=== PATIENT | female | born 1990 | race Hispanic/Latino ===

== ENCOUNTER 2023-02-15 19:45 | Inpatient (IN) | payer OTHER, SELFPAY ==
[~2023-02-15 19:45] MED LIST: Bupivacaine 0.25% HCL 30 ML VIAL ONE
[2023-02-15 20:15] VITALS: BMI 24.3
[2023-02-15] MEDS ORDERED: hydrALAZINE 20 MG/ML VIAL SLOW IVP PRN ×2 (20:26→21:15)
[2023-02-15 20:56] LABS: Fetal Membranes Rupture RUPTURE DETECTED (No Rupture)
[2023-02-15] MEDS ORDERED: Promethazine HCl 25 MG/ML VIAL IM PRN (21:15)
[2023-02-15] MEDS ORDERED: NS w/ Oxytocin 30 units 500 ML IV SCH ×3 (21:15→22:00)
[2023-02-15] MEDS ORDERED: Ondansetron PF 4 MG/2 ML Vial IVP PRN (21:15)
[2023-02-15] MEDS ORDERED: Ibuprofen 800 MG TAB PO PRN (21:48)
[2023-02-15] MEDS ORDERED: Lidocaine 1% (PF) 30 ML VIAL SC PRN (21:48)
[2023-02-15] MEDS ORDERED: Penicillin G Potassium 5 MILL.UNITS in Sodium Chloride 0.9% 100 ML IVPB SCH (22:00)
[2023-02-15 22:43] LABS: Hematocrit 35.8 % (34.9-44.5); Hemoglobin 11.9 g/dL (12.0-15.5); Mean Corpuscular HGB CONC 33.2 g/dL (32.0-36.0); Mean Corpuscular Hemoglobin 26.5 pg (27.0-33.0); Mean Corpuscular Volume 79.7 fl (81.6-98.3); Mean Platelet Volume 9.8 fl (7.4-10.4); Platelet Count 352 10x3/uL (150-450); RBC Distribution Width 14.8 % (11.5-14.5); Red Blood Cell (RBC) Count 4.49 10x6/uL (3.90-5.03); White Blood Cell (WBC) Count 9.7 10x3/uL (3.5-10.5)
[2023-02-15 23:13] LABS: Syphilis Antibody Nonreactive (Nonreactive); Syphilis Antibody Index 0.03 S/CO (<1.00 Non-Reactive)
[2023-02-15 23:14] LABS: HBSAg Index 0.16 S/CO (0-0.99); Hep B Surf Ag - L&D Non-Reactive S/CO (NonReactive)
[2023-02-16] MEDS ORDERED: fentaNYL/Ropivacaine Epidural 100 ML ONE (00:29)
[2023-02-16] MEDS ORDERED: ePHEDrine Sulfate 50 MG/10 ML VIAL SLOW IVP PRN (01:29)
[2023-02-16] MEDS ORDERED: Moisturizing Cream (Eucerin) 113 GM JAR TOP PRN (01:29)
[2023-02-16] MEDS ORDERED: Naloxone HCl 0.4 mg/ml Vial IVP PRN ×2 (01:29)
[2023-02-16] MEDS ORDERED: Ondansetron PF 4 MG/2 ML Vial IVP PRN ×2 (01:29→10:48)
[2023-02-16] MEDS ORDERED: Promethazine HCl 25 MG/ML VIAL IM PRN ×2 (01:29→10:48)
[2023-02-16] MEDS ORDERED: Lactated Ringer's 500 ML IV PRN (01:29)
[2023-02-16] MEDS ORDERED: Acetaminophen 325 MG TAB PO PRN (01:29)
[2023-02-16] MEDS ORDERED: diphenhydrAMINE 50 MG/ML VIAL IVP PRN (01:29)
[2023-02-16] MEDS ORDERED: fentaNYL 2 mcg/Ropivacaine 0.2% Epidural 100 ML CADD EPIDURAL SCH (01:30)
[2023-02-16] MEDS ORDERED: Communication Order-Pharmacy FS SCH (01:30)
[2023-02-16] MEDS: Penicillin G 2.5 MILL.units 2.5 MILL.UNITS in Premix Bag 1 BAG IVPB SCH (03:09)
[2023-02-16] MEDS ORDERED: Misoprostol 200 MCG TAB VAG PRN ×2 (07:01→10:48)
[2023-02-16] MEDS ORDERED: Bisacodyl 10 MG SUPP PR PRN ×2 (07:01→10:48)
[2023-02-16] MEDS ORDERED: Boostrix 0.5 ML (Tdap) VIAL (>/=7 yrs of age) IM ONE (07:01)
[2023-02-16] MEDS ORDERED: Milk Of Magnesia 30 ML UDCUP PO PRN (07:01)
[2023-02-16] MEDS ORDERED: Ferrous Sulfate 325 MG TAB PO SCH ×2 (08:00→11:15)
[2023-02-16] MEDS ORDERED: Docusate 100 MG CAP PO SCH ×3 (09:00→21:00)
[2023-02-16] MEDS ORDERED: diphenhydrAMINE 25 MG CAP PO PRN (10:48)
[2023-02-16] MEDS ORDERED: Preparation H Ointment 28 GM TUBE PR PRN (10:48)
[2023-02-16] MEDS ORDERED: HYDROcodone/Acetaminophen 5/325 mg Tablet PO PRN (10:48)
[2023-02-16] MEDS ORDERED: Zolpidem Tartrate 5 MG TAB PO PRN (10:48)
[2023-02-16] MEDS ORDERED: hydrALAZINE 20 MG/ML VIAL SLOW IVP PRN (10:48)
[2023-02-16] MEDS ORDERED: Measles/Mumps/Rubella 10 MCG/0.5 ML VIAL SC ONE (10:48)
[2023-02-16] MEDS ORDERED: Methylergonovine 0.2 MG/ML VIAL IM PRN (10:48)
[2023-02-16] MEDS ORDERED: Varicella virus, LIVE 0.5 ML VIAL SC ONE (10:48)
[2023-02-16] MEDS ORDERED: Lanolin Ointment 7 GM TUBE TOP PRN (10:48)
[2023-02-16] MEDS ORDERED: NS w/ Oxytocin 30 units 500 ML IV SCH (10:48)
[2023-02-16] MEDS ORDERED: Prenatal Vitamin 1 TAB PO SCH (11:00)
[2023-02-16] MEDS: HYDROcodone/Acetaminophen 5/325 mg Tablet PO PRN ×3 (11:10→23:24)
[2023-02-16] MEDS: Benzocaine-Menthol 82.5 ML CAN TOP PRN (11:10)
[2023-02-16] MEDS: Ibuprofen 800 MG TAB PO SCH ×2 (12:00→21:50)
[2023-02-16] MEDS: Lactated Ringer's 1,000 ML IV SCH ×2 (17:43→19:32)
[2023-02-16] MEDS: Ferrous Sulfate 325 MG TAB PO SCH (17:44)
[2023-02-16] MEDS: Docusate 100 MG CAP PO SCH (21:50)
[2023-02-17 04:45] LABS: Hematocrit 30.4 % (34.9-44.5); Hemoglobin 9.7 g/dL (12.0-15.5); Mean Corpuscular HGB CONC 31.9 g/dL (32.0-36.0); Mean Corpuscular Hemoglobin 26.2 pg (27.0-33.0); Mean Corpuscular Volume 82.2 fl (81.6-98.3); Mean Platelet Volume 9.4 fl (7.4-10.4); Platelet Count 269 10x3/uL (150-450); RBC Distribution Width 15.2 % (11.5-14.5); White Blood Cell (WBC) Count 10.9 10x3/uL (3.5-10.5)
[2023-02-17] MEDS: HYDROcodone/Acetaminophen 5/325 mg Tablet PO PRN ×4 (04:58→21:53)
[2023-02-17] MEDS: Lactated Ringer's 1,000 ML IV SCH ×2 (06:14→10:25)
[2023-02-17] MEDS: Ibuprofen 800 MG TAB PO SCH ×3 (06:22→21:50)
[2023-02-17] MEDS: Docusate 100 MG CAP PO SCH ×2 (08:29→21:50)
[2023-02-17] MEDS: Milk Of Magnesia 30 ML UDCUP PO PRN (08:29)
[2023-02-17] MEDS: Ferrous Sulfate 325 MG TAB PO SCH ×2 (08:29→18:24)
[2023-02-17] MEDS: Prenatal Vitamin 1 TAB PO SCH (08:29)
[2023-02-18] MEDS: HYDROcodone/Acetaminophen 5/325 mg Tablet PO PRN ×2 (02:47→07:54)
[2023-02-18] MEDS: Ibuprofen 800 MG TAB PO SCH (05:28)
[2023-02-18] MEDS: Lactated Ringer's 1,000 ML IV SCH ×2 (07:07→07:08)
[2023-02-18] MEDS: Penicillin G 2.5 MILL.units 2.5 MILL.UNITS in Premix Bag 1 BAG IVPB SCH (07:12)
[2023-02-18] MEDS ORDERED: Witch Hazel-Glycerin 1 EACH JAR TOP PRN (07:43)
[2023-02-18] MEDS: Docusate 100 MG CAP PO SCH (07:54)
[2023-02-18] MEDS: Prenatal Vitamin 1 TAB PO SCH (07:54)
[2023-02-18] MEDS: Milk Of Magnesia 30 ML UDCUP PO PRN (07:54)
[2023-02-18] MEDS: Ferrous Sulfate 325 MG TAB PO SCH (07:54)
[2023-02-18 09:05] VITALS: BP 106/64; TEMP 98
[2023-02-18] MEDS: Benzocaine-Menthol 82.5 ML CAN TOP PRN (11:29)
== END 2023-02-18 11:30 | disposition home or self-care (01) | DRG 768 ==
LOC: CSHLD/OP 19:45 → CSHLD 21:15 → CSHPP 02-16 09:30
PROVIDERS: ADMIT Obstetrics & Gynecology; ATTEND Obstetrics & Gynecology
PROC: 10E0XZZ Delivery of Products of Conception, External Approach (ICD-10-PCS; principal; 2023-02-16)
PROC: 0DQP0ZZ Repair Rectum, Open Approach (ICD-10-PCS; 2023-02-16)
PROC: 0W8NXZZ Division of Female Perineum, External Approach (ICD-10-PCS; 2023-02-16)
DX: O42.013 Preterm premature rupture of membranes, onset of labor within 24 hours of rupture, third trimester (principal); Z37.0 Single live birth; O60.14X0 Preterm labor third trimester with preterm delivery third trimester, not applicable or unspecified; O70.3 Fourth degree perineal laceration during delivery; Z3A.34 34 weeks gestation of pregnancy; F41.9 Anxiety disorder, unspecified; O99.344 Other mental disorders complicating childbirth; O76 Abnormality in fetal heart rate and rhythm complicating labor and delivery; O69.81X0 Labor and delivery complicated by cord around neck, without compression, not applicable or unspecified
CPT/HCPCS: 36415; 51702; 84112; 85027; 86780; 86850; 86900; 86901; 87340; 88307; 99285; J2540; J3490; S0020